=== PATIENT | female | born 1950 | race Caucasian/White ===

== ENCOUNTER 2017-12-19 09:47 | Outpatient (CLI) | payer MEDICARE | END 2017-12-19 09:48 | disposition home or self-care (01) | LOC: BICMAMMO 09:47 | PROVIDERS: ATTEND Internal Medicine | DX: Z12.31 Encounter for screening mammogram for malignant neoplasm of breast (principal) | CPT/HCPCS: 77063; 77067 ==

== ENCOUNTER 2019-08-10 10:54 | Outpatient (CLI) | payer MEDICARE ==
--- NOTE | 2019-08-10 14:02 | RAD ---
TWO VIEW CHEST: HISTORY: Cough. COMPARISON: No comparison. FINDINGS: There is right middle lobe opacification which is consistent with inflammatory infiltrate. An underl luz mass lesion is not excluded and followup to clearing is recommended. Left lung appears clear. Heart and mediastinum unremarkable. IMPRESSION: Right middle lobe opacifications consistent with dense infiltrate. Followup to clearing is recommend ed. POS: [facility]
== END 2019-08-10 10:55 | disposition home or self-care (01) ==
LOC: BICRAD 10:54
PROVIDERS: ATTEND Internal Medicine
DX: R05 Cough (principal); R91.8 Other nonspecific abnormal finding of lung field
CPT/HCPCS: 71046

== ENCOUNTER 2019-09-01 08:29 | Outpatient (CLI) | payer MEDICARE, OTHER ==
--- NOTE | 2019-09-01 14:41 | MMO ---
Bilateral MAMMO Bilat Screen [facility]. CLINICAL HISTORY: Patient is 68 years old and is seen for screening. The patient has no family history of breast cancer. The patient has no personal history of cancer. VIEWS: The views performed were: bilateral craniocaudal with tomosynthesis and bilateral mediolateral oblique with tomosynthesis. FILMS COMPARED: The present examination has been compared to prior imaging studies performed at [facility] on 06/12/2012, 06/17/2013, 06/30/2015 and 12/19/2017. This study has been interpreted with the assistance of computer-aided detection. MAMMOGRAM FINDINGS: There are scattered fibroglandular densities. There are no suspicious masses, suspicious calcifications, or new areas of architectural distortion. IMPRESSION: THERE IS NO MAMMOGRAPHIC EVIDENCE OF MALIGNANCY. A ROUTINE FOLLOW-UP MAMMOGRAM IN 1 YEAR IS RECOMMENDED. THE RESULTS OF THIS EXAM WERE SENT TO THE PATIENT. ACR BI-RADS Category 1 - Negative MAMMOGRAPHY NOTE: 1. A negative mammogram report should not delay a biopsy if a dominant of clinically suspicious mass is present. 2. Approximately 10% to 15% of breast cancers are not detected by mammography. 3. Adenosis and dense breasts may obscure an underlying neoplasm. Reported by: JANY HAN MD Electonically Signed: [id number]
== END 2019-09-01 08:30 | disposition home or self-care (01) ==
LOC: BICMAMMO 08:29
PROVIDERS: ATTEND Internal Medicine
DX: Z12.31 Encounter for screening mammogram for malignant neoplasm of breast (principal)
CPT/HCPCS: 77063; 77067

== ENCOUNTER 2019-09-01 08:56 | Outpatient (CLI) | payer MEDICARE ==
--- NOTE | 2019-09-01 11:04 | RAD ---
CHEST 2 VIEWS: HISTORY: Right middle lobe pulmonary infiltrate. COMPARISON: 08/10/2019. FINDINGS: Persistent abnormal parenchymal opacity in the region of the right middle lobe. This does not show s ignificant change from the prior study. Heart size is normal. The left lung is clear. IMPRESSION: Persistent abnormal opacity change in the right middle lobe. Since this has not resolved, I would consider a followup chest CT scan with IV contrast for further a ssessment. POS: [facility]
== END 2019-09-01 08:57 | disposition home or self-care (01) ==
LOC: BICRAD 08:56
PROVIDERS: ATTEND Internal Medicine
DX: R91.8 Other nonspecific abnormal finding of lung field (principal)
CPT/HCPCS: 71046

== ENCOUNTER 2019-09-10 09:33 | Outpatient (CLI) | payer MEDICARE ==
[2019-09-10 10:04] LABS: Estimated GFR-MDRD - POC Greater than 90
--- NOTE | 2019-09-10 10:57 | CT ---
EXAM: CT Chest W Con PROVIDED CLINICAL HISTORY: Abnormal chest radiograph COMPARISON: Chest radiographs 08/10/2019, 09/01/2019 FINDINGS: Vascular calcification including coronary calcium is demonstrated. There is lipomatous hypertrophy of the interatrial septum. The heart, pericardium and great vessels appear otherwise unremarkable. There is consolidation involving the right middle lobe with associated parenchymal volume loss. There is patchy airspace disease within the right suprahilar right upper lobe. No CT evidence for hilar mass or endobronchial lesion. The lungs appear otherwise free of significant opacity. Borderline enla rged right hilar and pretracheal lymph nodes. No additional thoracic lymph node enlargement is evident. No pleural fluid, pleural thickening or pneumothorax apparent. The airway appears patent and of ned l caliber. The visualized portions of the upper abdomen demonstrate no evidence for an acute process. Partially visualized conspicuous colonic fecal retention and presumed changes of splenosis. Nonspecific subcentimeter right hepatic lobe hypodensity. The osseous structures demonstrate no concerning lytic or blastic lesions. IMPRESSION: Right middle lobe and right upper lobe consolidation, which could reflect pneumonia in the appropriat e clinical context. Radiographic follow-up is recommended to evaluate for clearing. Pulmonary consultation may be useful as indicated.
[2019-09-10] MEDS ORDERED: Iopamidol-370 76% 500 ML 1 ML ONE (13:34)
== END 2019-09-10 09:34 | disposition home or self-care (01) ==
LOC: BICCT 09:33
PROVIDERS: ATTEND Internal Medicine
DX: R91.8 Other nonspecific abnormal finding of lung field (principal); J18.1 Lobar pneumonia, unspecified organism
CPT/HCPCS: 71260; 82565; Q9967

== ENCOUNTER 2020-06-28 11:56 | Outpatient (CLI) | payer MEDICARE ==
--- NOTE | 2020-06-28 12:19 | RAD ---
XR Chest Pa Lat STANDARD History: Dyspnea Comparison: Radiograph March 14 thousand 20 Findings: Mild background lung hyperinflation. No confluent airspace consolidation, pneumothorax or e ffusion. No acute osseous abnormality. Impression: No acute intrathoracic abnormality. Background lung hyperinflation.
== END 2020-06-28 11:57 | disposition home or self-care (01) ==
LOC: BICRAD 11:56
PROVIDERS: ATTEND Internal Medicine Critical Care Medicine
DX: R06.00 Dyspnea, unspecified (principal); R91.8 Other nonspecific abnormal finding of lung field
CPT/HCPCS: 71046

== ENCOUNTER 2021-12-05 08:16 | Outpatient (CLI) | payer MEDICARE | END 2021-12-05 08:17 | disposition home or self-care (01) | LOC: BICMRI 08:16 → BICRAD 08:17 | PROVIDERS: ATTEND Internal Medicine | DX: R05.9 Cough, unspecified (principal); R91.8 Other nonspecific abnormal finding of lung field | CPT/HCPCS: 71046 ==

== ENCOUNTER 2021-12-21 08:18 | Outpatient (CLI) | payer MEDICARE, OTHER | END 2021-12-21 08:19 | disposition home or self-care (01) | LOC: BICRAD 08:18 | PROVIDERS: ATTEND Internal Medicine | DX: J18.9 Pneumonia, unspecified organism (principal) | CPT/HCPCS: 71046 ==

== ENCOUNTER 2021-12-29 10:02 | Outpatient (CLI) | payer OTHER ==
[2021-12-29 10:57] LABS: Estimated GFR-MDRD - POC Greater than 90
[2021-12-29] MEDS ORDERED: ISOVUE-370 76%-LOCM 1 ML ONE (12:16)
== END 2021-12-29 10:03 | disposition home or self-care (01) ==
LOC: BICCT 10:02
PROVIDERS: ATTEND Internal Medicine
DX: J18.9 Pneumonia, unspecified organism (principal); R93.89 Abnormal findings on diagnostic imaging of other specified body structures; R91.8 Other nonspecific abnormal finding of lung field
CPT/HCPCS: 71270; 82565; Q9966

== ENCOUNTER 2022-03-14 13:34 | Outpatient (CLI) | payer OTHER | END 2022-03-14 13:35 | disposition home or self-care (01) | LOC: RAD 13:34 | PROVIDERS: ATTEND Internal Medicine Critical Care Medicine | DX: R06.00 Dyspnea, unspecified (principal) | CPT/HCPCS: 71046 ==

== ENCOUNTER 2024-01-14 09:30 | Outpatient (CLI) | payer OTHER | END 2024-01-14 09:31 | disposition home or self-care (01) | LOC: BICMAMMO 09:30 | PROVIDERS: ATTEND Internal Medicine | DX: Z12.31 Encounter for screening mammogram for malignant neoplasm of breast (principal); Z13.820 Encounter for screening for osteoporosis; M85.89 Other specified disorders of bone density and structure, multiple sites; Z78.0 Asymptomatic menopausal state | CPT/HCPCS: 77063; 77067; 77080 ==